=== PATIENT | male | born 1995 | race Caucasian/White ===

== ENCOUNTER 2017-07-29 15:39 | Emergency (ER) | payer OTHER ==
[2017-07-29 15:44] VITALS: BP 133/71
[2017-07-29 16:06] LABS: BASOPHILS % (AUTO) 0.5 %; EOSINOPHILS # (AUTO) 0.1 10^3/uL (0.0-0.7); EOSINOPHILS % (AUTO) 1.8 %; HCT - HEMATOCRIT 44.6 % (42.0-52.0); HGB - HEMOGLOBIN 15.2 g/dL (14.0-18.0); LYMPHOCYTES # (AUTO) 2.9 10^3/uL (1.5-3.5); LYMPHOCYTES % (AUTO) 47.7 %; MEAN CORPUSCULAR HEMOGLOBIN 30.1 pg (27.0-31.0); MEAN CORPUSCULAR VOLUME 88.8 fL (80.0-94.0); MEAN PLATELET VOLUME 8.2 fL (7.4-11.4); MONOCYTES # (AUTO) 0.5 10^3/uL (0.0-1.0); MONOCYTES % (AUTO) 8.3 %; NEUTROPHILS # (AUTO) 2.5 10^3/uL (1.5-6.6); NEUTROPHILS % (AUTO) 41.7 %; RED BLOOD COUNT 5.03 10^6/uL (4.70-6.10); RED CELL DISTRIBUTION WIDTH 12.6 % (12.0-15.0); UNCORRECTED WHITE BLOOD COUNT 6.1 x10^3/uL; WHITE BLOOD COUNT 6.1 x10^3/uL (4.8-10.8)
[2017-07-29 16:08] LABS: BILIRUBIN,URINE NEGATIVE (NEGATIVE)
--- NOTE | 2017-07-29 16:17 | ED Physician Documentation ---
PD HPI ABD PAIN - Stated complaint Stated Complaint: ABD/RT SIDE/BACK PX - Chief complaint Chief Complaint: Abd Pain - History obtained from History obtained from: Patient, Family - History of Present Illness Timing - onset: How many days ago (4) Timing - duration: Days (4) Timing - details: Gradual onset, Still present, Waxing and waning Quality: Sharp, Pain Location: RUQ, RLQ Radiation: Right flank Improved by: Other (nothing) Worsened by: Other (nothing) Associated symptoms: No: Fever, Nausea, Vomiting, Diarrhea, Constipation Similar symptoms before: Has not had sx before Recently seen: Not recently seen - Additional information Additional information: Previously healthy 22-year-old male has had 4 days of pain in his right back which seems to radiate to his right lower quadrant. He is not able to modify this pain in any way he did not make it worse or better.He has been able to eat he has not had a fever chills he has not had constipation or diarrhea he has not had nausea or vomiting.He states the pain started out in his back and 2 days ago he developed pain in the front as well in the right lower quadrant. Review of Systems Constitutional: denies: Fever Eyes: denies: Decreased vision Ears: denies: Ear pain Nose: denies: Congestion Throat: denies: Sore throat Cardiac: denies: Chest pain / pressure, Palpitations Respiratory: denies: Dyspnea, Cough GI: reports: Abdominal Pain. denies: Nausea, Vomiting, Constipation, Diarrhea : denies: Dysuria, Frequency Skin: denies: Rash, Lesions Musculoskeletal: reports: Back pain. denies: Neck pain, Extremity pain Neurologic: denies: Generalized weakness, Focal weakness, Numbness PD PAST MEDICAL HISTORY - Present Medications Home Medications: Ambulatory Orders Medication Instructions Recorded Confirmed No Known Home Medications [No 07/29/17 07/29/17 Known Home Medications] - Allergies Allergies/Adverse Reactions: Allergies Allergy/AdvReac Type Severity Reaction Status Date / Time No Known Drug Allergies Allergy Verified 07/29/17 15:44 PD ED PE NORMAL - Vitals Vital signs reviewed: Yes (Hypertensive mild) - General General: No acute distress, Well developed/nourished - HEENT HEENT: Atraumatic, PERRL - Neck Neck: Supple, no meningeal sign - Cardiac Cardiac: RRR, No murmur - Respiratory Respiratory: No respiratory distress, Clear bilaterally - Abdomen Abdomen: Normal bowel sounds, Soft, Non tender, Non distended, No organomegaly - Back Back: No CVA TTP, No spinal TTP - Derm Derm: Normal color, Warm and dry, No rash - Extremities Extremities: No deformity, No edema - Neuro Neuro: No motor deficit, No sensory deficit, Normal speech - Psych Psych: Normal mood, Normal affect Results - Vitals Vitals: Vital Signs - 24 hr 07/29/17 15:42 Temperature 36.1 C L Heart Rate 67 Respiratory 16 Rate Blood Pressure 133/71 H O2 Saturation 100 Oxygen O2 Source Room air - Labs Labs: Laboratory Tests 07/29/17 07/29/17 07/29/17 15:50 15:56 15:56 WBC 6.1 RBC 5.03 Hgb 15.2 Hct 44.6 MCV 88.8 MCH 30.1 MCHC 34.0 RDW 12.6 Plt Count 184 MPV 8.2 Neut # 2.5 Lymph # 2.9 [place] # 0.5 Eos # 0.1 Baso # 0.0 Absolute Nucleated RBC 0.00 Nucleated RBC % 0.0 Sodium 141 Potassium 4.1 Chloride 101 Carbon Dioxide 30 Anion Gap 10.0 BUN 12 Creatinine 0.7 Estimated GFR (MDRD) 140 Glucose 67 L Calcium 9.4 Total Bilirubin 0.5 AST 21 ALT 15 Alkaline Phosphatase 40 L Total Protein 7.5 Albumin 4.7 Globulin 2.8 Albumin/Globulin Ratio 1.7 Lipase 25 Urine Color YELLOW Urine Clarity CLEAR Urine pH 7.0 Ur Specific [place] 1.015 Urine Protein NEGATIVE Urine Glucose (UA) NEGATIVE Urine Ketones NEGATIVE Urine Occult Blood NEGATIVE Urine Nitrite NEGATIVE Urine Bilirubin NEGATIVE Urine Urobilinogen 0.2 (NORMAL) Ur Leukocyte Esterase NEGATIVE Ur Microscopic Review NOT INDICATED Urine Culture Comments NOT INDICATED Procedures - Bedside sono Bedside sono by EMP: With use of bedside ultrasound the right kidney is imaged there is no evidence of hydronephrosis in the kidney is sonographically nontender PD MEDICAL DECISION MAKING - ED course Complexity details: reviewed results, re-evaluated patient, considered differential, d/w patient, d/w family ED course: 22-year-old male with right-sided abdominal and flank pain without evidence of hydronephrosis on bedside exam no evidence of blood in the urine and no evidence of infection. Blood work and electrolytes are unremarkable. Departure - Departure Disposition: Home, Self Care Clinical Impression: Abdominal pain Qualifiers: Abdominal location: right lower quadrant Qualified Code(s): R10.31 - Right lower quadrant pain Condition: Stable Instructions: ED Abdominal Pain Unkn Cause Follow-Up: [facility] [Provider Group]
[2017-07-29 16:21] LABS: ALBUMIN/GLOBULIN RATIO 1.7 (1.0-2.2); BILIRUBIN,TOTAL 0.5 mg/dL (0.2-1.0); CALCIUM 9.4 mg/dL (8.5-10.3); CREATININE 0.7 mg/dL (0.6-1.2); POTASSIUM 4.1 mmol/L (3.5-5.0); TOTAL PROTEIN 7.5 g/dL (6.7-8.2)
[2017-07-29 16:27] LABS: UA CHARGE (STRIP ONLY) YES; UR CULTURE IF IND NOT INDICATED
== END 2017-07-29 16:46 | disposition home or self-care (01) ==
LOC: ED 15:39
DX: R10.31 Right lower quadrant pain (principal)
CPT/HCPCS: 36415; 80053; 81001; 81003; 83690; 85025; 87086; 99283